=== PATIENT | male | born 1980 | race Caucasian/White ===

== ENCOUNTER 2019-11-29 11:45 | Emergency (ER) | payer OTHER ==
[~2019-11-29] VITALS: Ht 177.8 cm; Wt 76.3 kg
[2019-11-29] MEDS ORDERED: HYDROmorphone 1 MG/ML, 1ML INJ ONE (12:20)
--- NOTE | 2019-11-29 12:22 | NUR ---
PT AMBULATORY TO RADIOLOGY W/ STEADY GAIT.
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
[2019-11-29] MEDS ORDERED: HYDROmorphone 1 MG/ML, 1ML INJ IM ONE (12:30)
[2019-11-29] MEDS ORDERED: DIPH25TA65 PO (12:32)
[2019-11-29] MEDS ORDERED: HYDR-3240 PO (12:32)
--- NOTE | 2019-11-29 12:41 | NUR ---
DILAUDID GIVEN PER EMAR. SIDE RAIL UP X2, CALL LIGHT W/IN REACH.
[2019-11-29 13:21] VITALS: BP 117/72
== END 2019-11-29 13:27 | disposition home or self-care (01) ==
LOC: ED 12:53
DX: S22.32XA Fracture of one rib, left side, initial encounter for closed fracture (principal); R07.89 Other chest pain; X58.XXXA Exposure to other specified factors, initial encounter; Y93.89 Activity, other specified; Y92.89 Other specified places as the place of occurrence of the external cause; Y99.8 Other external cause status
CPT/HCPCS: 71046; 96372; 99283; J1170

== ENCOUNTER 2020-01-15 22:04 | Emergency (ER) | payer OTHER ==
[~2020-01-15] VITALS: Ht 177.8 cm; Wt 76.1 kg
[~2020-01-15 22:04] MED LIST: DIPH25TA65 PO; HYDR-3240 PO
[2020-01-15 22:56] LABS: BASOPHILS # (AUTO) 0.03 x10^3/uL (0-0.1); BASOPHILS % (AUTO) 0 % (0-1); EOSINOPHILS # (AUTO) 0.13 x10^3/uL (0-0.4); EOSINOPHILS % (AUTO) 1 % (1-7); LYMPHOCYTES # (AUTO) 1.77 x10^3/uL (1-3.4); LYMPHOCYTES % (AUTO) 15 % (22-44); MD NO; MEAN CORPUSCULAR HEMOGLOBIN 32.1 pg (27.5-34.5); MEAN CORPUSCULAR HGB CONC 34.2 g/dL (33.2-36.2); MEAN CORPUSCULAR VOLUME 93.8 fL (81-97); MEAN PLATELET VOLUME 8.1 fL (7.4-10.4); MONOCYTES # (AUTO) 0.49 x10^3/uL (0.2-0.8); MONOCYTES % (AUTO) 4 % (2-9); NEUTROPHILS # (AUTO) 9.48 x10^3/uL (1.8-6.8); NEUTROPHILS % (AUTO) 80 % (42-75); PLATELET COUNT 214 x10^3/uL (130-400); RED BLOOD COUNT 4.57 x10^6/uL (4.38-5.82); RED CELL DISTRIBUTION WIDTH 12.3 % (9.4-14.8)
[2020-01-15] MEDS ORDERED: ONDANSETRON 2MG/ML, 2ML IVPush ONE (23:00)
[2020-01-15] MEDS ORDERED: SODIUM CHLORIDE FLUSH 10ML SYR IVF ONE (23:00)
[2020-01-15 23:05] LABS: ALANINE AMINOTRANSFERASE 34 U/L (12-78); ALBUMIN 4.1 g/dL (3.4-5.0); ANION GAP 8 mmol/L (5-15); CALCIUM 9.2 mg/dL (8.5-10.1); CHLORIDE 104 mmol/L (98-107); CREATININE 1.11 mg/dL (0.7-1.3)
[2020-01-15 23:07] LABS: ALKALINE PHOSPHATASE 63 U/L (45-117); BILIRUBIN,TOTAL 0.6 mg/dL (0.2-1.0); TOTAL PROTEIN 7.5 g/dL (6.4-8.2)
[2020-01-15] MEDS ORDERED: HYDROmorphone 1 MG/ML, 1ML INJ ONE (23:12)
[2020-01-15] MEDS ORDERED: ONDANSETRON 2MG/ML, 2ML ONE (23:12)
--- NOTE | 2020-01-15 23:14 | NUR ---
PT IN ULTRASOUND.
[2020-01-15] MEDS: HYDROmorphone 2 MG/ML, 1ML IVPush PRN (23:22)
[2020-01-15 23:45] LABS: MICROSCOPIC NOT IND
[2020-01-16] MEDS ORDERED: HYDROmorphone 1 MG/ML, 1ML INJ IV ONE (01:00)
[2020-01-16] MEDS ORDERED: HYDROmorphone 1 MG/ML, 1ML INJ ONE (01:20)
[2020-01-16 01:23] VITALS: BP 116/81
[2020-01-16] MEDS: HYDROmorphone 2 MG/ML, 1ML IVPush PRN (01:24)
== END 2020-01-16 02:20 | disposition home or self-care (01) ==
LOC: ED 01-16 00:41
DX: R10.9 Unspecified abdominal pain (principal); R14.0 Abdominal distension (gaseous)
CPT/HCPCS: 36415; 74021; 76700; 80053; 81003; 83690; 85025; 96374; 96375; 96376; 99285; J1170; J2405